=== PATIENT | male | born 1940 | race Caucasian/White ===

== ENCOUNTER 2024-06-28 13:20 | Emergency (ER) | payer OTHER, SELFPAY ==
[2024-06-28 13:24] VITALS: BP 80/52
[2024-06-28 13:27] VITALS: BP 89/69
[2024-06-28 13:37] VITALS: BMI 26.5
[2024-06-28 13:49] LABS: % Basophils 0.3 % (0-2); % Eosinophils 1.6 % (0-6); % Immature Granulocytes 0.6 % (0-0.5); % Lymphocytes 24.3 % (20.5-51.1); % Monocytes 5.2 % (1.7-9.3); Absolute Eosinophils 0.1 10^3/uL (0-0.7); Absolute Lymphocytes 1.6 10^3/uL (1.2-3.4); Absolute Monocytes 0.4 10^3/uL (0.1-0.6); Absolute Neutrophils 4.6 10^3/uL (1.4-6.5); Hemoglobin 12.8 g/dL (13.0-18.0); Mean Corp Hgb Conc. 32.8 g/dL (33.0-37.0); Mean Corpuscular Hgb 29.8 pg (27.0-31.0); Mean Corpuscular Volume 90.9 fL (80.0-94.0); Mean Platelet Volume 10.7 fL (7.4-10.4); Nucleated Red Blood Cells % 0 % (-); Platelet Count 144 10^3/uL (130-400); Red Blood Cell Count 4.29 10^6/uL (4.70-6.10); Red Cell Dist. Width 12.5 % (11.5-14.5); White Blood Cell Count 6.7 10^3/uL (4.8-10.8)
--- NOTE | 2024-06-28 13:58 | ED.GENMED ---
History of Present Illness
General
Chief Complaint: Abdominal Symptoms
Source: spouse
Time Seen by Provider: 06/28/24 13:50
History of Present Illness
History of Present Illness:
84-year-old male presents to the emergency room via ambulance after an episode where he became unresponsive at home. states the patient has a history of significant dementia. He was eating a salad when he began gagging and 'his eyes rolled
back into his head' and he became unresponsive. called 911. He eventually came around. He is at his baseline now. Due to his dementia he is not particularly cooperative. Patient offers no complaints and just wants to get out of here.
states he has no known cardiac history.
Phy Exam
Physical Exam
Physical Exam:
General: Awake, Alert, Oriented X1. No acute distress.
Vitals: Bradycardic
Head: Atraumatic
Eyes: Pupils equal, EOMI
Throat: Airway intact, no exudates
Neck: Trachea midline
Lungs: Clear and equal b/l
Heart: Regular rate, no murmurs
Abd: Soft, Nontender, No pulsatile mass
Neuro: Grossly nonfocal
Skin: Warm, dry, no rash
Extremities: pulses equal b/l, no edema
Course
Orders/Labs/Results
Orders:
Orders
06/28/24
Electrocardiogram (*1) Stat
Comment: ALREADY DONE
06/28/24 13:22
Case Management Consult ONCE
Case Management Consult: Discharge Planning
Requested By:: NURSING
Comment: PT. has dementia and is his only animal daycare provider. She has no help and he has advaniced
dementia.
06/28/24 13:36
CMP [Comprehensive Metabolic Panel] Urgent
Complete Blood Count/With Diff Urgent
06/28/24 13:56
Electrocardiogram (*1) Urgent
Reason for Study: Syncope
EKG- Treatment ONCE
06/28/24 13:57
CR Chest - 2 Views Urgent
Comment:
Reason For Exam: choking episode
06/28/24 14:53
Haloperidol Lactate [Haldol] 2.5 mg IM NOW STA
Lorazepam [Ativan] 1 mg IM NOW STA
Abnormal Lab Results
06/28/24
13:36
RBC 4.29 L 10^6/uL
(4.70-6.10)
Hgb 12.8 L g/dL
(13.0-18.0)
MCHC 32.8 L g/dL
(33.0-37.0)
MPV 10.7 H fL
(7.4-10.4)
Immature Gran % 0.6 H %
(0-0.5)
BUN 24 H mg/dl
(9-20)
Glucose 140 H mg/dl
(70-99)
06/28/24 13:36
06/28/24 13:36
Vital Signs
Initial and Last Documented VS:
Initial Vital Signs
Temp Pulse Resp BP Pulse Ox
97.4 F 45 18 80/52 95
06/28/24 13:24 06/28/24 13:24 06/28/24 13:24 06/28/24 13:24 06/28/24 13:24
Last Documented Vital Signs
Temp Pulse Resp BP Pulse Ox
97.4 F 49 13 89/69 98
06/28/24 13:24 06/28/24 13:30 06/28/24 13:30 06/28/24 13:27 06/28/24 13:27
MDM/Problems Addressed
Differential Diagnosis Includes:
Vasovagal syncope, true syncope, aspiration/choking episode
MDM/Problems Addressed:
Patient presents with an episode where he sounded to be choking came to find him unresponsive. He quickly regained consciousness. Here the patient is at his baseline mental status which is confused. During his time here in the emergency
became quite agitated, fighting with staff pulling off his leads and pulling out his IV. Labs show no significant abnormalities. EKG shows sinus bradycardia. Unclear the exact etiology the patient's symptoms. Discussed the possibility that this
was a vasovagal event versus syncope from bradycardia with his . Given his severe dementia and severe agitation I feel hospitalization is likely to provide more harm than good. Patient's is not sure she consent any procedures. Will
discharge the patient and have him follow-up as an outpatient with his primary
*Pulse Oximetry
Patient hypoxic: no
*EKG
Interpretation: abnormal
Heart Rate: 49
Rate: bradycardiac
[place]: normal axis
Interval: normal interval
QRS Pattern: normal QRS
Ischemia: non-specific ST changes
*Media Specialist Interpretation
Rate: bradycardiac
Interpretation: abnormal
Rhythm: sinus
*Critical Care Note
Total Time (30-74mins, 75-104mins- exclusive of procedures): Not Applicable
ED Attending Note
-
Portions of this chart may have been created with voice recognition software.� Occasional wrong word or��sound alike� substitutions may have occurred due to the inherent limitations of voice recognition software.
Discharge Plan
Departure
Patient Disposition: Home (Routine Discharge)
Date of Disposition: 06/28/24
Time of Disposition: 16:25
Patient with high blood pressure during this ER visit?: No
Condition: Good
Discharge Problem:
Choking, Syncope
Instructions: Syncope (Fainting) (DC), Choking
Prescriptions:
No Action
lisinopril 20 MG tablet
20 mg PO DAILY
aspirin 81 MG tablet,delayed release (DR/EC)
81 mg PO MOWEFR
simvastatin 20 MG tablet
20 mg PO HS
donepezil 10 mg Tablet
10 mg PO DAILY
famotidine 40 mg Tablet
40 mg PO DAILY
cyanocobalamin (vitamin B-12) 500 mcg Tablet
500 mcg PO DAILY
memantine 10 mg Tablet
10 mg PO BID
Referrals:
Peter Fitzgerald, DO [Family Provider] -
Interventions
Interventions:
*Risk Screen - Suicide Last Done: 06/28/24 13:24
*General Assessment Last Done: 06/28/24 13:24
*Neglect/Abuse Screening Last Done: 06/28/24 13:24
ED- Fall Risk Assessment Last Done: 06/28/24 16:30
*ED COVID-19 Vaccine History Last Done: 06/28/24 13:24
*Nursing Disposition Last Done: 06/28/24 16:30
[place] Assessment Last Done: 06/28/24 16:30
Discharge Date and Time
Discharge Date/Time: 06/28/24 16:43
Print Language: IRAQI
[2024-06-28 14:14] LABS: ALT (SGPT) 21 U/L (0-50); AST (SGOT) 22 U/L (17-59); Albumin 4.3 g/dl (3.5-5.0); Alkaline Phosphatase 66 U/L (38-126); Blood Urea Nitrogen 24 mg/dl (9-20); Calcium 9.2 mg/dl (8.4-10.2); Carbon Dioxide 25 mmol/L (22-30); Chloride 101 mmol/L (98-107); Estimated Creatinine Clearance 41 ml/min; Glucose 140 mg/dl (70-99); Sodium 139 mmol/L (135-145); Total Bilirubin 0.7 mg/dl (0.2-1.3); Total Protein 6.4 g/dl (6.3-8.2); eGFR 54.85
[2024-06-28] MEDS: ATIVAN 1 MG IM (14:59)
[2024-06-28] MEDS: HALDOL 2.5 MG IM (14:59)
--- NOTE | 2024-06-28 16:07 | CM ---
Met with patient and his at the bedside in the ED
reported that her has Dementia; stated his medication is not helping
reported that she and her live in a 2 multilevel home; 2 steps to enter; 1st floor set up w/ bedroom and bath; bath has tub w/ shower
PLOF: reported that patient is independent with personal care; ambulation, and stairs; railing present on stairs; pateint no longer drives; their adult son lives 90 miles away and visit once a week
No history of SNF or Home Health utilization
will transport home
List of private caregivers reviewed with ; suggested to that she contact the [facility] for support/services
Discharge Plan to be determined pending hospital course; CM will follow and support as needed
== END 2024-06-28 16:43 | disposition home or self-care (01) ==
LOC: EMR 13:20
PROVIDERS: Physician Assistant Medical; EMERGENCY PHYSICIAN Emergency Medicine; FAMILY PHYSICIAN Family Medicine
DX: R09.89 Other specified symptoms and signs involving the circulatory and respiratory systems (principal); R55 Syncope and collapse; F03.C11 Unspecified dementia, severe, with agitation
CPT/HCPCS: 96372; 99285; 71046; 80053; 85025; 93005

== ENCOUNTER 2025-03-22 11:51 | Emergency (ER) | payer OTHER, SELFPAY ==
[2025-03-22 11:57] VITALS: BP 131/69
[2025-03-22 12:17] LABS: Hematocrit 41.4 % (39.0-52.0); Hemoglobin 14.0 g/dL (13.0-18.0); Mean Corp Hgb Conc. 33.8 g/dL (33.0-37.0); Mean Corpuscular Volume 88.3 fL (80.0-94.0); Nucleated Red Blood Cells % 0 % (-); Platelet Count 202 10^3/uL (130-400); Red Cell Dist. Width 13.0 % (11.5-14.5)
[2025-03-22 12:41] VITALS: BMI 20.2
[2025-03-22 12:46] LABS: ALT (SGPT) 22 U/L (0-50); AST (SGOT) 25 U/L (17-59); Albumin 5.2 g/dl (3.5-5.0); Alkaline Phosphatase 66 U/L (38-126); Blood Urea Nitrogen 23 mg/dl (9-20); Calcium 9.4 mg/dl (8.4-10.2); Carbon Dioxide 27 mmol/L (22-30); Chloride 102 mmol/L (98-107); Estimated Creatinine Clearance 46 ml/min; Glucose 130 mg/dl (70-99); Potassium 4.6 mmol/L (3.5-5.1); Sodium 138 mmol/L (135-145); Total Protein 7.8 g/dl (6.3-8.2); eGFR > 60.00
--- NOTE | 2025-03-22 13:17 | ED.GENMED ---
History of Present Illness
General
Chief Complaint: Fatigue
Source: patient and spouse
Exam Limitations: dementia
Time Seen by Provider: 03/22/25 12:38
Nursing documentation reviewed up to this point in time: agreed with
History of Present Illness
History of Present Illness:
Elderly man with dementia brought in by his apparently his temperature which she took on his forehead was well she spoke with primary care recommend he come to the ER here he is normotensive, normothermic, patient is no complaints of that he is
demented, he tells me like to go home, tells me was recently started on Seroquel she wonders if that could be making him tired
Past History
Past History
ED Past Medical History: HTN and Psychiatric
Social History
Tobacco: Non-smoker
Alcohol: None
Drug: None
Personal:
Living: with family
Employment: Retired
Review of Systems
Review of Systems
Unable to obtain full review of systems at this time due to: dementia
Other source history: family
All Other Systems: Not applicable
: Reports no symptoms
Musculoskeletal: Reports no symptoms
Skin: Reports no symptoms
Neurological: Reports no symptoms
Endocrine: Reports no symptoms
Phy Exam
Physical Exam
Physical Exam:
Physical Exam
General: no apparent distress, not acutely ill
Neck: No jaundice
Heart: s1/s2 regular rate and rhythm, no murmur. equal radial pulses.
Lungs: no acute respiratory distress. clear bilaterally
Abdomen: Soft nontender no CVA tenderness
Neuro: alert and oriented. no focal neurological deficits
Skin: no rash
Psychiatric: well kept. interactive and cooperative
Extremities: no edema.
Course
Orders/Labs/Results
Orders:
Orders
03/22/25 12:08
Complete Blood Count/With Diff Urgent
Comprehensive Metabolic Panel Urgent
03/22/25 13:43
Urinalysis Reflex To Culture Urgent
Date Specimen was Collected: 03/22/25
Time Specimen was Collected: 13:43
Urine Microscopic Reflex Cult Urgent
Urine Culture Urgent
MEENA Source: U
Specimen Description:
Date Specimen was Collected: 03/22/25
Time Specimen was Collected: 13:43
Abnormal Lab Results
03/22/25 03/22/25
12:08 13:43
RBC 4.69 L 10^6/uL
(4.70-6.10)
Abs Immat Gran (auto) 0.1 H 10^3/uL
(0-0.05)
Absolute Neuts (auto) 9.5 H 10^3/uL
(1.4-6.5)
Absolute Lymphs (auto) 0.7 L 10^3/uL
(1.2-3.4)
Immature Gran % 0.6 H %
(0-0.5)
Neutrophils % 88.8 H %
(42.2-75.2)
Lymphocytes % 6.6 L %
(20.5-51.1)
BUN 23 H mg/dl
(9-20)
Glucose 130 H mg/dl
(70-99)
Albumin 5.2 H g/dl
(3.5-5.0)
Urine Ketones 1+ A
(Negative)
Urine Bacteria (Reflex) Moderate A
(Negative)
Urine Albumin (Reflex) 2+ A
(Neg - Trace)
03/22/25 12:08
03/22/25 12:08
Vital Signs
Initial and Last Documented VS:
Initial Vital Signs
Temp Pulse Resp BP Pulse Ox
98.4 F 66 18 131/69 98
03/22/25 11:57 03/22/25 11:57 03/22/25 11:57 03/22/25 11:57 03/22/25 11:57
Last Documented Vital Signs
Temp Pulse Resp BP Pulse Ox
98.4 F 66 18 131/69 98
03/22/25 11:57 03/22/25 11:57 03/22/25 11:57 03/22/25 11:57 03/22/25 13:20
MDM/Problems Addressed
Differential Diagnosis Includes:
Occult infection, electrolyte abnormality medication effect sundowning dementia
MDM/Problems Addressed:
Weakness, normothermic
Chronic conditions affecting care: Neurological disorder and Psychiatric illness
Acute Exacerbation and/or Progression of Chronic Illness: Neurological disorder and Psychiatric illness
*Pulse Oximetry
SaO2: 98
Oxygen Mode of Delivery: Room air
Patient hypoxic: no
*Critical Care Note
Total Time (30-74mins, 75-104mins- exclusive of procedures): Not Applicable
Update Note
Update Note:
Update patient well-appearing stable vital signs, labs are noted to be normothermic could all be related to his new medication versus progressive dementia will try to get a urine, if he will allow us reviewed with nursing and family
2:15 PM labs noted urine noted suspect contaminated specimen
ED Attending Note
-
Portions of this chart may have been created with voice recognition software.� Occasional wrong word or��sound alike� substitutions may have occurred due to the inherent limitations of voice recognition software.
Discharge Plan
Departure
Patient Disposition: Home (Routine Discharge)
Date of Disposition: 03/22/25
Time of Disposition: 14:19
Patient with high blood pressure during this ER visit?: No
Condition: Good
Discharge Problem:
Weakness
Instructions: Generalized Weakness (DC)
Prescriptions:
No Action
lisinopril 20 MG tablet
20 mg PO DAILY
aspirin 81 MG tablet,delayed release (DR/EC)
81 mg PO MOWEFR
simvastatin 20 MG tablet
20 mg PO HS
donepezil 10 mg Tablet
10 mg PO DAILY
famotidine 40 mg Tablet
40 mg PO DAILY
cyanocobalamin (vitamin B-12) 500 mcg Tablet
500 mcg PO DAILY
memantine 10 mg Tablet
10 mg PO BID
Referrals:
Peter Fitzgerald, [Family Provider, Family Practice] - Next open appointment
Activity Restrictions/Additional Instructions:
Return to the ER for worsening symptoms or any other concerns
Interventions
Interventions:
*Risk Screen - Suicide Last Done: 03/22/25 12:01
*General Assessment Last Done: 03/22/25 12:01
*Neglect/Abuse Screening Last Done: 03/22/25 12:41
*ED- Fall Risk Assessment Last Done: 03/22/25 12:41
*ED COVID-19 Vaccine History Last Done: 03/22/25 12:01
Discharge Date and Time
Print Language: IRISH
[2025-03-22 13:56] LABS: Urine Character Slightly Cloudy (Clear)
[2025-03-22 14:18] LABS: Urine Red Blood Cell None Seen /HPF (0-2)
== END 2025-03-22 14:31 | disposition home or self-care (01) ==
LOC: EMR 11:51
PROVIDERS: Emergency Medicine; EMERGENCY PHYSICIAN Emergency Medicine; FAMILY PHYSICIAN Family Medicine
DX: R53.1 Weakness (principal); I10 Essential (primary) hypertension; F03.90 Unspecified dementia, unspecified severity, without behavioral disturbance, psychotic disturbance, mood disturbance, and anxiety
CPT/HCPCS: 99283; 80053; 81003; 81015; 85025; 87086